=== PATIENT | male | born 1950 | race Caucasian/White ===

== ENCOUNTER → 2024-01-18 06:49 | Outpatient (REF) | payer MEDICARE, SELFPAY | LOC: HWRAD 06:49 | PROVIDERS: ATTENDING PHYSICIAN Physician Assistant; FAMILY PHYSICIAN Internal Medicine | DX: D69.6 Thrombocytopenia, unspecified (principal) | CPT/HCPCS: 76700 ==

== ENCOUNTER → 2024-01-24 06:36 | Day surgery (SDC) | payer MEDICARE, SELFPAY ==
[2024-01-24 07:11] LABS: Glucose - Point of Care 160 mg/dl (70-99)
== END ==
LOC: GI 06:36
PROVIDERS: ATTENDING PHYSICIAN Internal Medicine Gastroenterology
DX: Z12.11 Encounter for screening for malignant neoplasm of colon (principal); K57.30 Diverticulosis of large intestine without perforation or abscess without bleeding; K64.8 Other hemorrhoids; Z86.0100 Personal history of colon polyps, unspecified
CPT/HCPCS: G0105; 82962

== ENCOUNTER → 2024-03-29 11:14 | Outpatient (REF) | payer MEDICARE, SELFPAY | LOC: HWRCS 11:14 | PROVIDERS: ATTENDING PHYSICIAN Internal Medicine Cardiovascular Disease; FAMILY PHYSICIAN Internal Medicine | DX: I35.0 Nonrheumatic aortic (valve) stenosis (principal); Z95.2 Presence of prosthetic heart valve | CPT/HCPCS: 93306 ==

== ENCOUNTER → 2024-09-14 13:08 | Outpatient (REF) | payer MEDICARE, SELFPAY | LOC: PAVMRI 13:08 | PROVIDERS: ATTENDING PHYSICIAN Physician Assistant; FAMILY PHYSICIAN Internal Medicine | DX: M25.562 Pain in left knee (principal) | CPT/HCPCS: 73723; A9575 ==

== ENCOUNTER 2024-10-05 06:23 | Day surgery (SDC) | payer MEDICARE, SELFPAY ==
[2024-09-27 09:51] LABS: Hematocrit 39.6 % (39.0-52.0); Hemoglobin 13.8 g/dL (13.0-18.0); Mean Corp Hgb Conc. 34.8 g/dL (33.0-37.0); Mean Corpuscular Volume 91.2 fL (80.0-94.0); Platelet Count 60 10^3/uL (130-400); Red Cell Dist. Width 12.6 % (11.5-14.5)
[2024-09-27 10:08] LABS: Blood Urea Nitrogen 18 mg/dl (9-20); Calcium 8.8 mg/dl (8.4-10.2); Carbon Dioxide 23 mmol/L (22-30); Chloride 106 mmol/L (98-107); Glucose 152 mg/dl (70-99); Potassium 4.0 mmol/L (3.5-5.1); Sodium 137 mmol/L (135-145); eGFR > 60.00
[2024-09-27 13:23] VITALS: BMI 30.1
--- NOTE | 2024-09-27 16:00 | PTCARENOTE ---
Addendum entered by Emili Sidhu 09/27/24 16:04:
Abnormal platelet count 60 collected 09/27/24, reported to Erinn at Dr Kim's office.
Original Note:
Abnormal ECG done 09/27/[address] Peterson, no further interventions requested.
--- NOTE | 2024-09-28 15:08 | PTCARENOTE ---
Abnormal Platelet count 60 collected 09/27/24, reviewed by Dr Razo, no further interventions requested.
[2024-10-05 09:06] VITALS: BP 145/76; BMI 30.1
[2024-10-05] MEDS: CELEBREX 200 MG PO (09:12)
[2024-10-05 09:13] LABS: Glucose - Point of Care 143 mg/dl (70-99)
[2024-10-05] MEDS: TYLENOL 1000 MG PO (09:15)
[2024-10-05] MEDS: NORMOSOL-R/PLASMALYTE-A 1000 IV (09:15)
== END 2024-10-05 11:40 | disposition home or self-care (01) ==
LOC: SDS 06:23
PROVIDERS: ATTENDING PHYSICIAN Orthopaedic Surgery; FAMILY PHYSICIAN Internal Medicine
DX: S80.02XA Contusion of left knee, initial encounter (principal); X58.XXXA Exposure to other specified factors, initial encounter; R22.42 Localized swelling, mass and lump, left lower limb
CPT/HCPCS: 27327; 36415; 80048; 82962; 85027; 88304; 93005

== ENCOUNTER → 2025-01-26 07:47 | Outpatient (REF) | payer MEDICARE, SELFPAY ==
[2025-01-26 09:02] LABS: Hematocrit 40.9 % (39.0-52.0); Hemoglobin 14.2 g/dL (13.0-18.0); Mean Corp Hgb Conc. 34.7 g/dL (33.0-37.0); Mean Corpuscular Volume 91.9 fL (80.0-94.0); Nucleated Red Blood Cells % 0 % (-); Platelet Count 56 10^3/uL (130-400); Red Cell Dist. Width 12.7 % (11.5-14.5)
[2025-01-26 09:14] LABS: ALT (SGPT) 25 U/L (0-50); AST (SGOT) 29 U/L (17-59); Albumin 4.3 g/dl (3.5-5.0); Alkaline Phosphatase 47 U/L (38-126); Blood Urea Nitrogen 17 mg/dl (9-20); Calcium 9.0 mg/dl (8.4-10.2); Carbon Dioxide 28 mmol/L (22-30); Chloride 104 mmol/L (98-107); Glucose 91 mg/dl (70-99); HDL Cholesterol 43 mg/dl; LDL Cholesterol, Calculated 50 mg/dl; Potassium 4.6 mmol/L (3.5-5.1); Sodium 139 mmol/L (135-145); Total Protein 7.1 g/dl (6.3-8.2); Very Low Density Lipoprotein 17 mg/dl (0-30); eGFR > 60.00
[2025-01-26 10:25] LABS: Glycohemoglobin (HgbA1c) 6.1 % (4.0-5.9)
== END ==
LOC: REG 07:47
PROVIDERS: ATTENDING PHYSICIAN Internal Medicine Hematology & Oncology; FAMILY PHYSICIAN Internal Medicine
DX: E11.9 Type 2 diabetes mellitus without complications (principal); D69.6 Thrombocytopenia, unspecified; D69.3 Immune thrombocytopenic purpura
CPT/HCPCS: 80053; 80061; 83036; 84100; 85025

== ENCOUNTER → 2025-03-07 14:11 | Outpatient (REF) | payer MEDICARE, SELFPAY | LOC: HWRAD 14:11 | PROVIDERS: ATTENDING PHYSICIAN Internal Medicine | DX: Z14.8 Genetic carrier of other disease (principal) | CPT/HCPCS: 76775 ==